=== PATIENT | female | born 1980 | race African-American/Black ===

== ENCOUNTER 2023-11-27 10:14 | Emergency (ER) | payer MEDICAID ==
[~2023-11-27] VITALS: Ht 160 cm; Wt 90.9 kg
[~2023-11-27 10:14] MED LIST: CYCL-837 PO; NAP500T PO
[2023-11-27] MEDS: HYDROcodone-ACET 10/325MG TAB PO ONE (11:24)
[2023-11-27] MEDS ORDERED: IBUP1TAB5 PO (12:18)
[2023-11-27] MEDS ORDERED: IBU600T PO (12:28)
[2023-11-27 12:38] VITALS: BP 112/72; PULSE 67; RESP 18; TEMP 97.8; O2SAT 98
== END 2023-11-27 12:41 | disposition home or self-care (01) ==
LOC: ER 10:14
DX: S93.691A Other sprain of right foot, initial encounter (principal); S93.491A Sprain of other ligament of right ankle, initial encounter; Z98.890 Other specified postprocedural states; Z79.899 Other long term (current) drug therapy; W01.0XXA Fall on same level from slipping, tripping and stumbling without subsequent striking against object, initial encounter; Y93.E9 Activity, other interior property and clothing maintenance; Y92.89 Other specified places as the place of occurrence of the external cause; Y99.8 Other external cause status
CPT/HCPCS: 73610; 73630